=== PATIENT | male | born 1980 | race Caucasian/White ===

== ENCOUNTER 2017-04-14 08:07 | Inpatient (IN) | payer BC, OTHER ==
[2017-04-14 08:32] LABS: BASO # 0.1 10^3/uL (0.0-0.2); BASO % 0.6 % (0.0-1.0); HEMATOCRIT 40.6 % (42.0-52.0); HEMOGLOBIN 12.5 g/dl (14.0-18.0); IMMATURE GRANULOCYTE # 0.4 10^3/uL (0-0); LYMPH # 1.3 10^3/uL (1.5-4.5); LYMPH % 10.2 % (24.0-44.0); MEAN CORPUSCULAR HEMOGLOBIN 28.2 pg (27.0-33.0); MEAN CORPUSCULAR HGB CONC 30.8 g/dl (32.0-36.5); MEAN CORPUSCULAR VOLUME 91.6 fl (80.0-96.0); MONO # 1.1 10^3/uL (0.0-0.8); MONO % 8.5 % (0.0-5.0); NEUTROPHILS # 9.9 10^3/uL (1.8-7.7); NEUTROPHILS % 77.7 % (36.0-66.0); PLATELET COUNT, AUTOMATED 280 10^3/uL (150-450); RED BLOOD COUNT 4.43 10^6/uL (4.30-6.10); RED CELL DISTRIBUTION WIDTH 14.1 % (11.5-14.5); WHITE BLOOD COUNT 12.7 10^3/uL (4.0-10.0)
[2017-04-14 08:43] LABS: INR 1.02; PROTHROMBIN TIME 13.5 SECONDS (12.4-14.5)
[2017-04-14 08:44] LABS: PARTIAL THROMBOPLASTIN TIME 21.4 SECONDS (26.8-37.9)
[2017-04-14 08:57] LABS: ANION GAP 8 MEQ/L (8-16); BLOOD UREA NITROGEN 33 MG/DL (7-18); CALCIUM LEVEL 8.3 MG/DL (8.5-10.1); CARBON DIOXIDE LEVEL 31 MEQ/L (21-32); CHLORIDE LEVEL 100 MEQ/L (98-107); CPK CREATINE PHOSPHOKINASE 107 U/L (39-308); CREATININE FOR GFR 1.54 MG/DL (0.70-1.30); GLOMERULAR FILTRATION RATE 54.1 (>60); MB/CK RELATIVE INDEX 0.93 (< OR =4); SODIUM LEVEL 139 MEQ/L (136-145); TROPONIN I < 0.02 NG/ML (< 0.10)
[2017-04-14] MEDS: NS 1,000 ML IV ×2 (09:08→09:40)
[2017-04-14 09:13] LABS: GLUCOSE, FASTING 1201 MG/DL (70-105); POTASSIUM SERUM 5.2 MEQ/L (3.5-5.1)
[2017-04-14 09:24] LABS: ALBUMIN 3.1 GM/DL (3.2-5.2); ALBUMIN/GLOBULIN RATIO 0.78 (1.00-1.93); ALKALINE PHOSPHATASE 170 U/L (45-117); ALT/SGPT 37 U/L (12-78); AST/SGOT 21 U/L (7-37); BILIRUBIN,DIRECT < 0.1 MG/DL (0.0-0.2); BILIRUBIN,TOTAL 0.4 MG/DL (0.2-1.0); TOTAL PROTEIN 7.1 GM/DL (6.4-8.2)
[2017-04-14] MEDS: HumuLIN R (REGULAR) INSULIN (NovoLIN R) **100U/ML** PER UNIT IV (09:40)
[2017-04-14 09:46] LABS: ACETONE/KETONE 13.93 MG/DL (<2.81)
[2017-04-14 09:52] LABS: LACTIC ACID SEPSIS PROTOCOL 1.1 MMOL/L (0.4-2.0)
[2017-04-14 10:12] LABS: ABG BASE EXCESS -2.7 (-2.0-2.0); ABG HCO3 21.1 MEQ/L (22.0-26.0); ABG O2 SATURATION 97.6 % (95.0-99.0); ABG PARTIAL PRESSURE CO2 33.3 mmHg (35.0-45.0); ABG PARTIAL PRESSURE O2 100.5 mmHg (75.0-100.0); ABG STANDARD HCO3 22.2 MEQ/L (22.0-26.0); ABG TOTAL CO2 22.1 MEQ/L (22.0-29.0)
[2017-04-14] MEDS: SODIUM CHLORIDE 0.9% 1000 ML IV (10:50)
[2017-04-14 11:19] LABS: ANION GAP 8 MEQ/L (8-16); BLOOD UREA NITROGEN 27 MG/DL (7-18); CARBON DIOXIDE LEVEL 28 MEQ/L (21-32); CHLORIDE LEVEL 116 MEQ/L (98-107); CREATININE FOR GFR 1.22 MG/DL (0.70-1.30); GLOMERULAR FILTRATION RATE > 60.0 (>60); POTASSIUM SERUM 4.5 MEQ/L (3.5-5.1); SODIUM LEVEL 152 MEQ/L (136-145)
[2017-04-14 11:20] LABS: GLUCOSE, FASTING 639 MG/DL (70-105)
[2017-04-14] MEDS ORDERED: ONDANSETRON 4MG/2ML VIAL (J2405) IV (11:45)
[2017-04-14] MEDS ORDERED: INSULIN HUMAN REGULAR 100 UNITS in NS 99 ML IV (11:45)
[2017-04-14] MEDS: INSULIN HUMAN REGULAR 100 UNITS in NS 99 ML IV ×2 (12:54→13:00)
[2017-04-14] MEDS: ENOXAPARIN 40 MG/0.4 ML SYRINGE (J1650) SC (12:55)
[2017-04-14] MEDS: PANTOPRAZOLE 40MG INJ (PROTONIX) (C9113) IV (12:55)
[2017-04-14] MEDS: NS 0.45% 1,000 ML IV ×2 (12:55→16:44)
[2017-04-14] MEDS: INSULIN IV RATE CHANGE DOCUMENTATION ML/HR XX ×6 (13:21→23:19)
[2017-04-14 14:29] LABS: ANION GAP 9 MEQ/L (8-16); BLOOD UREA NITROGEN 23 MG/DL (7-18); CALCIUM LEVEL 7.6 MG/DL (8.5-10.1); CARBON DIOXIDE LEVEL 28 MEQ/L (21-32); CHLORIDE LEVEL 117 MEQ/L (98-107); CREATININE FOR GFR 1.02 MG/DL (0.70-1.30); GLOMERULAR FILTRATION RATE > 60.0 (>60); SODIUM LEVEL 154 MEQ/L (136-145)
[2017-04-14 14:40] LABS: GLUCOSE, FASTING 492 MG/DL (70-105)
[2017-04-14 15:51] LABS: BEDSIDE GLUCOSE 487 MG/DL (70-105)
[2017-04-14 15:51] LABS: BEDSIDE GLUCOSE 508 MG/DL (70-105)
[2017-04-14 15:51] LABS: BEDSIDE GLUCOSE 419 MG/DL (70-105)
[2017-04-14 16:10] LABS: BEDSIDE GLUCOSE 360 MG/DL (70-105)
[2017-04-14 17:11] LABS: BEDSIDE GLUCOSE 352 MG/DL (70-105)
[2017-04-14] MEDS: D5W/0.45% SODIUM CHLORIDE 1,000 ML IV (18:05)
[2017-04-14 18:08] LABS: BEDSIDE GLUCOSE 297 MG/DL (70-105)
[2017-04-14 19:07] LABS: BEDSIDE GLUCOSE 307 MG/DL (70-105)
[2017-04-14 19:23] LABS: ANION GAP 5 MEQ/L (8-16); BLOOD UREA NITROGEN 17 MG/DL (7-18); CALCIUM LEVEL 7.2 MG/DL (8.5-10.1); CARBON DIOXIDE LEVEL 30 MEQ/L (21-32); CHLORIDE LEVEL 117 MEQ/L (98-107); CREATININE FOR GFR 0.81 MG/DL (0.70-1.30); GLOMERULAR FILTRATION RATE > 60.0 (>60); GLUCOSE, FASTING 317 MG/DL (70-105); POTASSIUM SERUM 3.6 MEQ/L (3.5-5.1); SODIUM LEVEL 152 MEQ/L (136-145)
[2017-04-14 20:08] LABS: BEDSIDE GLUCOSE 302 MG/DL (70-105)
[2017-04-14 21:10] LABS: BEDSIDE GLUCOSE 305 MG/DL (70-105)
[2017-04-14] MEDS: KCL 40MEQ IN D5/0.45NS 1000ML 1,000 ML IV (22:17)
[2017-04-14 22:26] LABS: BEDSIDE GLUCOSE 289 MG/DL (70-105)
[2017-04-14 23:24] LABS: ANION GAP 5 MEQ/L (8-16); BLOOD UREA NITROGEN 17 MG/DL (7-18); CALCIUM LEVEL 6.8 MG/DL (8.5-10.1); CARBON DIOXIDE LEVEL 29 MEQ/L (21-32); CHLORIDE LEVEL 115 MEQ/L (98-107); GLOMERULAR FILTRATION RATE > 60.0 (>60); GLUCOSE, FASTING 322 MG/DL (70-105); POTASSIUM SERUM 3.3 MEQ/L (3.5-5.1); SODIUM LEVEL 149 MEQ/L (136-145)
[2017-04-14 23:27] LABS: BEDSIDE GLUCOSE 325 MG/DL (70-105)
[2017-04-15] MEDS: INSULIN IV RATE CHANGE DOCUMENTATION ML/HR XX ×12 (00:17→20:03)
[2017-04-15 00:24] LABS: BEDSIDE GLUCOSE 355 MG/DL (70-105)
[2017-04-15 01:24] LABS: BEDSIDE GLUCOSE 317 MG/DL (70-105)
[2017-04-15 02:24] LABS: BEDSIDE GLUCOSE 295 MG/DL (70-105)
[2017-04-15 03:19] LABS: ANION GAP 7 MEQ/L (8-16); BLOOD UREA NITROGEN 16 MG/DL (7-18); CALCIUM LEVEL 7.2 MG/DL (8.5-10.1); CARBON DIOXIDE LEVEL 28 MEQ/L (21-32); CHLORIDE LEVEL 113 MEQ/L (98-107); CREATININE FOR GFR 0.76 MG/DL (0.70-1.30); GLOMERULAR FILTRATION RATE > 60.0 (>60); GLUCOSE, FASTING 316 MG/DL (70-105); POTASSIUM SERUM 3.6 MEQ/L (3.5-5.1); SODIUM LEVEL 148 MEQ/L (136-145)
[2017-04-15 03:19] LABS: BEDSIDE GLUCOSE 291 MG/DL (70-105)
[2017-04-15 04:26] LABS: BEDSIDE GLUCOSE 320 MG/DL (70-105)
[2017-04-15] MEDS: KCL 40MEQ IN D5/0.45NS 1000ML 1,000 ML IV ×2 (05:00→11:31)
[2017-04-15 05:16] LABS: BEDSIDE GLUCOSE 330 MG/DL (70-105)
[2017-04-15 06:11] LABS: BEDSIDE GLUCOSE 292 MG/DL (70-105)
[2017-04-15 07:05] LABS: BEDSIDE GLUCOSE 345 MG/DL (70-105)
[2017-04-15 07:25] LABS: BASO % 0.2 % (0.0-1.0); EOS # 0.2 10^3/uL (0.0-0.50); EOS % 1.4 % (0.0-3.0); HEMATOCRIT 27.7 % (42.0-52.0); IMMATURE GRANULOCYTE # 0.1 10^3/uL (0-0); IMMATURE GRANULOCYTE % 1.4 % (0-0); LYMPH # 2.8 10^3/uL (1.5-4.5); LYMPH % 26.5 % (24.0-44.0); MEAN CORPUSCULAR HEMOGLOBIN 28.6 pg (27.0-33.0); MEAN CORPUSCULAR HGB CONC 32.5 g/dl (32.0-36.5); MEAN CORPUSCULAR VOLUME 87.9 fl (80.0-96.0); MONO # 0.6 10^3/uL (0.0-0.8); NEUTROPHILS # 6.7 10^3/uL (1.8-7.7); NEUTROPHILS % 64.5 % (36.0-66.0); RED BLOOD COUNT 3.15 10^6/uL (4.30-6.10); RED CELL DISTRIBUTION WIDTH 13.8 % (11.5-14.5); WHITE BLOOD COUNT 10.4 10^3/uL (4.0-10.0)
[2017-04-15 07:37] LABS: PLATELET COUNT, AUTOMATED 175 10^3/uL (150-450)
[2017-04-15 08:11] LABS: BEDSIDE GLUCOSE 305 MG/DL (70-105)
[2017-04-15] MEDS: ENOXAPARIN 40 MG/0.4 ML SYRINGE (J1650) SC (08:23)
[2017-04-15] MEDS: PANTOPRAZOLE 40MG INJ (PROTONIX) (C9113) IV (08:23)
[2017-04-15 09:14] LABS: BEDSIDE GLUCOSE 321 MG/DL (70-105)
[2017-04-15 09:28] LABS: CHOLESTEROL LEVEL 245 MG/DL (<200); CHOLESTEROL RISK RATIO 10.208 (<5); HDL CHOLESTEROL 24 MG/DL (>40); NON-HDL-C 221 MG/DL; TRIGLYCERIDES LEVEL 945 MG/DL (<150)
[2017-04-15 10:12] LABS: BEDSIDE GLUCOSE 292 MG/DL (70-105)
[2017-04-15 11:09] LABS: BEDSIDE GLUCOSE 288 MG/DL (70-105)
[2017-04-15 12:20] LABS: BEDSIDE GLUCOSE 295 MG/DL (70-105)
[2017-04-15 12:30] LABS: ANION GAP 5 MEQ/L (8-16); BLOOD UREA NITROGEN 14 MG/DL (7-18); CARBON DIOXIDE LEVEL 29 MEQ/L (21-32); CHLORIDE LEVEL 109 MEQ/L (98-107); CREATININE FOR GFR 0.69 MG/DL (0.70-1.30); GLOMERULAR FILTRATION RATE > 60.0 (>60); GLUCOSE, FASTING 314 MG/DL (70-100); POTASSIUM SERUM 3.9 MEQ/L (3.5-5.1); SODIUM LEVEL 143 MEQ/L (136-145)
[2017-04-15 13:19] LABS: BEDSIDE GLUCOSE 297 MG/DL (70-105)
[2017-04-15] MEDS: KCL 40MEQ IN D5/NS 1000ML 1,000 ML IV ×2 (14:06→20:01)
[2017-04-15 14:14] LABS: BEDSIDE GLUCOSE 317 MG/DL (70-105)
[2017-04-15 15:17] LABS: BEDSIDE GLUCOSE 287 MG/DL (70-105)
[2017-04-15 16:10] LABS: BEDSIDE GLUCOSE 305 MG/DL (70-105)
[2017-04-15 17:40] LABS: BEDSIDE GLUCOSE 261 MG/DL (70-105)
[2017-04-15 18:28] LABS: BEDSIDE GLUCOSE 271 MG/DL (70-105)
[2017-04-15 19:02] LABS: BEDSIDE GLUCOSE 285 MG/DL (70-105)
[2017-04-15 20:02] LABS: ANION GAP 7 MEQ/L (8-16); BLOOD UREA NITROGEN 10 MG/DL (7-18); CALCIUM LEVEL 7.2 MG/DL (8.5-10.1); CARBON DIOXIDE LEVEL 26 MEQ/L (21-32); CHLORIDE LEVEL 108 MEQ/L (98-107); CREATININE FOR GFR 0.62 MG/DL (0.70-1.30); GLOMERULAR FILTRATION RATE > 60.0 (>60); GLUCOSE, FASTING 281 MG/DL (70-100); POTASSIUM SERUM 3.9 MEQ/L (3.5-5.1); SODIUM LEVEL 141 MEQ/L (136-145)
[2017-04-15] MEDS: INSULIN HUMAN REGULAR 100 UNITS in NS 99 ML IV (20:02)
[2017-04-15 20:03] LABS: BEDSIDE GLUCOSE 296 MG/DL (70-105)
[2017-04-15 21:10] LABS: BEDSIDE GLUCOSE 285 MG/DL (70-105)
[2017-04-15 22:10] LABS: BEDSIDE GLUCOSE 278 MG/DL (70-105)
[2017-04-15 23:03] LABS: BEDSIDE GLUCOSE 270 MG/DL (70-105)
[2017-04-15] MEDS: LEVEMIR (INSULIN DETEMIR) 1 UNITS/0.01ML SC (23:14)
[2017-04-16 00:17] LABS: BEDSIDE GLUCOSE 271 MG/DL (70-105)
[2017-04-16 00:45] LABS: ANION GAP 5 MEQ/L (8-16); BLOOD UREA NITROGEN 9 MG/DL (7-18); CARBON DIOXIDE LEVEL 27 MEQ/L (21-32); CHLORIDE LEVEL 110 MEQ/L (98-107); CREATININE FOR GFR 0.57 MG/DL (0.70-1.30); GLOMERULAR FILTRATION RATE > 60.0 (>60); GLUCOSE, FASTING 276 MG/DL (70-100); POTASSIUM SERUM 3.7 MEQ/L (3.5-5.1); SODIUM LEVEL 142 MEQ/L (136-145)
[2017-04-16] MEDS ORDERED: GLUCAGON FOR INJ 1 MG VIAL (J1610) SC (01:00)
[2017-04-16] MEDS ORDERED: GLUCOSE 4 GM CHEW TABLET PO (01:00)
[2017-04-16] MEDS ORDERED: DEXTROSE 50% 50 ML SYRINGE IV (01:00)
[2017-04-16 03:43] LABS: ANION GAP 8 MEQ/L (8-16); BLOOD UREA NITROGEN 9 MG/DL (7-18); CARBON DIOXIDE LEVEL 25 MEQ/L (21-32); CHLORIDE LEVEL 110 MEQ/L (98-107); CREATININE FOR GFR 0.57 MG/DL (0.70-1.30); GLOMERULAR FILTRATION RATE > 60.0 (>60); GLUCOSE, FASTING 315 MG/DL (70-100); POTASSIUM SERUM 3.9 MEQ/L (3.5-5.1); SODIUM LEVEL 143 MEQ/L (136-145)
[2017-04-16 04:14] LABS: BASO % 0.1 % (0.0-1.0); EOS # 0.2 10^3/uL (0.0-0.50); EOS % 1.8 % (0.0-3.0); HEMOGLOBIN 8.8 g/dl (14.0-18.0); IMMATURE GRANULOCYTE # 0.1 10^3/uL (0-0); IMMATURE GRANULOCYTE % 0.8 % (0-0); LYMPH # 2.4 10^3/uL (1.5-4.5); LYMPH % 28.2 % (24.0-44.0); MEAN CORPUSCULAR HEMOGLOBIN 28.4 pg (27.0-33.0); MEAN CORPUSCULAR HGB CONC 32.6 g/dl (32.0-36.5); MEAN CORPUSCULAR VOLUME 87.1 fl (80.0-96.0); MONO # 0.5 10^3/uL (0.0-0.8); NEUTROPHILS # 5.5 10^3/uL (1.8-7.7); NEUTROPHILS % 63.1 % (36.0-66.0); PLATELET COUNT, AUTOMATED 170 10^3/uL (150-450); RED CELL DISTRIBUTION WIDTH 13.6 % (11.5-14.5); WHITE BLOOD COUNT 8.7 10^3/uL (4.0-10.0)
[2017-04-16 06:11] LABS: ANION GAP 7 MEQ/L (8-16); BLOOD UREA NITROGEN 9 MG/DL (7-18); CARBON DIOXIDE LEVEL 26 MEQ/L (21-32); CHLORIDE LEVEL 109 MEQ/L (98-107); CREATININE FOR GFR 0.58 MG/DL (0.70-1.30); GLOMERULAR FILTRATION RATE > 60.0 (>60); GLUCOSE, FASTING 318 MG/DL (70-100); SODIUM LEVEL 142 MEQ/L (136-145)
[2017-04-16] MEDS: PANTOPRAZOLE 40MG INJ (PROTONIX) (C9113) IV (08:22)
[2017-04-16] MEDS: ATORVASTATIN 20 MG TAB PO (08:22)
[2017-04-16] MEDS: OMEGA-3 1050MG CAPSULE PO (08:22)
[2017-04-16] MEDS: HumaLOG INSULIN (NovoLOG) PER UNIT SC ×4 (08:23→20:49)
[2017-04-16] MEDS: ENOXAPARIN 40 MG/0.4 ML SYRINGE (J1650) SC (08:23)
[2017-04-16 08:27] LABS: RETIC HEMOGLOBIN EQUIVALENT 35.2 pg (24-36); RETICULOCYTE # 66.6 10^9/L (17-77); RETICULOCYTE % 2.1 % (0.5-1.5)
[2017-04-16 08:52] LABS: FERRITIN 1769 NG/ML (26-388); IRON (FE) 17 UG/DL (65-175); PERCENT SATURATION 13.2 % (19.7-50.0); TOTAL IRON BINDING CAPACITY 129 UG/DL (250-450)
[2017-04-16 13:23] LABS: BEDSIDE GLUCOSE 404 MG/DL (70-105)
[2017-04-16 13:23] LABS: BEDSIDE GLUCOSE > 600 MG/DL (70-105)
[2017-04-16 13:23] LABS: BEDSIDE GLUCOSE > 600 MG/DL (70-105)
[2017-04-16] MEDS: LEVEMIR (INSULIN DETEMIR) 1 UNITS/0.01ML SC ×2 (15:54→20:49)
[2017-04-16 16:58] LABS: BEDSIDE GLUCOSE 245 MG/DL (70-105)
[2017-04-16 20:42] LABS: BEDSIDE GLUCOSE 277 MG/DL (70-105)
[2017-04-16] MEDS ORDERED: LEVEMIR (INSULIN DETEMIR) 1 UNITS/0.01ML SC (21:00)
[2017-04-17 06:31] LABS: BASO % 0.1 % (0.0-1.0); EOS # 0.1 10^3/uL (0.0-0.50); EOS % 1.9 % (0.0-3.0); HEMATOCRIT 28.7 % (42.0-52.0); HEMOGLOBIN 9.3 g/dl (14.0-18.0); IMMATURE GRANULOCYTE # 0.1 10^3/uL (0-0); IMMATURE GRANULOCYTE % 1.1 % (0-0); LYMPH # 1.8 10^3/uL (1.5-4.5); LYMPH % 25.2 % (24.0-44.0); MEAN CORPUSCULAR HEMOGLOBIN 27.8 pg (27.0-33.0); MEAN CORPUSCULAR HGB CONC 32.4 g/dl (32.0-36.5); MEAN CORPUSCULAR VOLUME 85.9 fl (80.0-96.0); MONO # 0.5 10^3/uL (0.0-0.8); MONO % 6.2 % (0.0-5.0); NEUTROPHILS # 4.8 10^3/uL (1.8-7.7); NEUTROPHILS % 65.5 % (36.0-66.0); PLATELET COUNT, AUTOMATED 170 10^3/uL (150-450); RED BLOOD COUNT 3.34 10^6/uL (4.30-6.10); RED CELL DISTRIBUTION WIDTH 13.4 % (11.5-14.5); WHITE BLOOD COUNT 7.3 10^3/uL (4.0-10.0)
[2017-04-17 06:52] LABS: ANION GAP 7 MEQ/L (8-16); BLOOD UREA NITROGEN 11 MG/DL (7-18); CALCIUM LEVEL 7.5 MG/DL (8.5-10.1); CARBON DIOXIDE LEVEL 26 MEQ/L (21-32); CHLORIDE LEVEL 109 MEQ/L (98-107); CREATININE FOR GFR 0.63 MG/DL (0.70-1.30); GLOMERULAR FILTRATION RATE > 60.0 (>60); GLUCOSE, FASTING 284 MG/DL (70-100); POTASSIUM SERUM 3.7 MEQ/L (3.5-5.1); SODIUM LEVEL 142 MEQ/L (136-145)
[2017-04-17 08:09] LABS: HAPTOGLOBIN 202 mg/dL (34-200)
[2017-04-17] MEDS: FERROUS SULFATE 325MG TAB PO ×3 (08:31→20:24)
[2017-04-17] MEDS: DOCUSATE SODIUM 100 MG CAP PO ×2 (08:31→20:24)
[2017-04-17] MEDS: ATORVASTATIN 20 MG TAB PO (08:31)
[2017-04-17] MEDS: OMEGA-3 1050MG CAPSULE PO (08:31)
[2017-04-17] MEDS: CALCIUM GLUCONATE 1,000 MG in D5W MINI-BAG PLUS 100 ML IV (08:32)
[2017-04-17] MEDS: PANTOPRAZOLE 40MG INJ (PROTONIX) (C9113) IV (08:32)
[2017-04-17] MEDS: ENOXAPARIN 40 MG/0.4 ML SYRINGE (J1650) SC (08:32)
[2017-04-17] MEDS: LEVEMIR (INSULIN DETEMIR) 1 UNITS/0.01ML SC (08:33)
[2017-04-17] MEDS: HumaLOG INSULIN (NovoLOG) PER UNIT SC ×4 (08:33→20:24)
[2017-04-17] MEDS: MIRALAX *UNIT DOSE* 17GM PACKET PO (08:33)
[2017-04-17] MEDS ORDERED: LEVEMIR (INSULIN DETEMIR) 1 UNITS/0.01ML SC (09:00)
[2017-04-17 11:46] LABS: BEDSIDE GLUCOSE 281 MG/DL (70-105)
[2017-04-17 16:54] LABS: BEDSIDE GLUCOSE 232 MG/DL (70-105)
[2017-04-17 20:41] LABS: BEDSIDE GLUCOSE 266 MG/DL (70-105)
[2017-04-18 06:37] LABS: BASO % 0.3 % (0.0-1.0); EOS # 0.2 10^3/uL (0.0-0.50); EOS % 2.5 % (0.0-3.0); HEMATOCRIT 27.4 % (42.0-52.0); HEMOGLOBIN 8.8 g/dl (14.0-18.0); IMMATURE GRANULOCYTE # 0.1 10^3/uL (0-0); IMMATURE GRANULOCYTE % 1.5 % (0-0); LYMPH % 29.1 % (24.0-44.0); MEAN CORPUSCULAR HEMOGLOBIN 27.8 pg (27.0-33.0); MEAN CORPUSCULAR HGB CONC 32.1 g/dl (32.0-36.5); MEAN CORPUSCULAR VOLUME 86.4 fl (80.0-96.0); MONO # 0.5 10^3/uL (0.0-0.8); NEUTROPHILS % 58.6 % (36.0-66.0); PLATELET COUNT, AUTOMATED 144 10^3/uL (150-450); RED BLOOD COUNT 3.17 10^6/uL (4.30-6.10); RED CELL DISTRIBUTION WIDTH 13.3 % (11.5-14.5); WHITE BLOOD COUNT 6.8 10^3/uL (4.0-10.0)
[2017-04-18 06:57] LABS: ANION GAP 6 MEQ/L (8-16); BLOOD UREA NITROGEN 8 MG/DL (7-18); CALCIUM LEVEL 7.4 MG/DL (8.5-10.1); CARBON DIOXIDE LEVEL 29 MEQ/L (21-32); CHLORIDE LEVEL 106 MEQ/L (98-107); CREATININE FOR GFR 0.53 MG/DL (0.70-1.30); GLOMERULAR FILTRATION RATE > 60.0 (>60); GLUCOSE, FASTING 264 MG/DL (70-100); POTASSIUM SERUM 3.8 MEQ/L (3.5-5.1); SODIUM LEVEL 141 MEQ/L (136-145)
[2017-04-18] MEDS: ENOXAPARIN 40 MG/0.4 ML SYRINGE (J1650) SC (08:24)
[2017-04-18] MEDS: HumaLOG INSULIN (NovoLOG) PER UNIT SC ×2 (08:25→13:30)
[2017-04-18] MEDS: OMEGA-3 1050MG CAPSULE PO (08:25)
[2017-04-18] MEDS: DOCUSATE SODIUM 100 MG CAP PO (08:25)
[2017-04-18] MEDS: ATORVASTATIN 20 MG TAB PO (08:25)
[2017-04-18] MEDS: LEVEMIR (INSULIN DETEMIR) 1 UNITS/0.01ML SC (08:26)
[2017-04-18] MEDS: FERROUS SULFATE 325MG TAB PO (08:26)
[2017-04-18] MEDS: MIRALAX *UNIT DOSE* 17GM PACKET PO (09:00)
[2017-04-18] MEDS: PANTOPRAZOLE 40MG INJ (PROTONIX) (C9113) IV (09:00)
[2017-04-18 15:56] LABS: BEDSIDE GLUCOSE 348 MG/DL (70-105)
== END 2017-04-18 14:25 | disposition home or self-care (01) | DRG 420 ==
LOC: M MSPAV 04-16 17:30 → M ED 08:07 → M ED INP 10:52 → M ICU 12:20
PROVIDERS: Internal Medicine Nephrology
DX: E11.00 Type 2 diabetes mellitus with hyperosmolarity without nonketotic hyperglycemic-hyperosmolar coma (NKHHC) (principal); G93.41 Metabolic encephalopathy; N17.9 Acute kidney failure, unspecified; E83.51 Hypocalcemia; E78.5 Hyperlipidemia, unspecified; J45.909 Unspecified asthma, uncomplicated; F41.9 Anxiety disorder, unspecified; D64.9 Anemia, unspecified; G47.33 Obstructive sleep apnea (adult) (pediatric); F17.210 Nicotine dependence, cigarettes, uncomplicated; E86.0 Dehydration; Z91.14 Patient's other noncompliance with medication regimen

== ENCOUNTER → 2019-02-13 | Outpatient (REF) | payer OTHER, MEDICAID ==
[~2019-02-13] MED LIST: ATOR1TAB21 PO; COLA100C5 PO; D-CA1KIT XX; FERR1TAB8 PO; INSUDET SC; LEVE1INJ5 SC; METF500T13 PO; OMAC1CA PO
[2019-02-13 12:43] LABS: BASO % 0.5 % (0.0-1.0); EOS # 0.2 10^3/uL (0.0-0.5); HEMATOCRIT 40.9 % (42.0-52.0); HEMOGLOBIN 13.4 g/dl (13.5-17.5); LYMPH # 1.7 10^3/uL (1.5-5.0); LYMPH % 25.7 % (24.0-44.0); MEAN CORPUSCULAR HEMOGLOBIN 28.8 pg (27.0-33.0); MEAN CORPUSCULAR HGB CONC 32.8 g/dl (32.0-36.5); MEAN CORPUSCULAR VOLUME 87.8 fl (80.0-96.0); MONO # 0.6 10^3/uL (0.0-0.8); MONO % 8.4 % (0.0-5.0); NEUTROPHILS # 4.1 10^3/uL (1.5-8.5); NEUTROPHILS % 61.8 % (36.0-66.0); PLATELET COUNT, AUTOMATED 182 10^3/uL (150-450); RED BLOOD COUNT 4.66 10^6/uL (4.30-6.10); WHITE BLOOD COUNT 6.7 10^3/uL (4.0-10.0)
[2019-02-13 13:00] LABS: TOTAL 25(OH) VITAMIN D 13.7 NG/ML (30.0-100.0)
[2019-02-13 13:03] LABS: HEMOGLOBIN A1c 7.6 %
[2019-02-13 13:06] LABS: ALBUMIN 3.9 GM/DL (3.2-5.2); ALT/SGPT 48 U/L (12-78); BILIRUBIN,TOTAL 0.6 MG/DL (0.2-1.0); BLOOD UREA NITROGEN 14 MG/DL (7-18); CALCIUM LEVEL 7.9 MG/DL (8.5-10.1); CARBON DIOXIDE LEVEL 27 MEQ/L (21-32); CHLORIDE LEVEL 106 MEQ/L (98-107); CHOLESTEROL LEVEL 188 MG/DL (<200); CHOLESTEROL RISK RATIO 4.177 (<5); CREATININE FOR GFR 0.86 MG/DL (0.70-1.30); FERRITIN 66 NG/ML (26-388); GLOMERULAR FILTRATION RATE > 60.0 (>60); GLUCOSE, FASTING 159 MG/DL (70-100); HDL CHOLESTEROL 45 MG/DL (>40); IRON (FE) 74 UG/DL (65-175); LDL CHOLESTEROL 95 MG/DL (<100); NON-HDL-C 143 MG/DL; PERCENT SATURATION 22.8 % (19.7-50.0); POTASSIUM SERUM 4.2 MEQ/L (3.5-5.1); SODIUM LEVEL 139 MEQ/L (136-145); TOTAL IRON BINDING CAPACITY 324 UG/DL (250-450); TOTAL PROTEIN 7.1 GM/DL (6.4-8.2); TRIGLYCERIDES LEVEL 241 MG/DL (<150)
== END ==
LOC: M LAB REF 12:23
PROVIDERS: ATTEND Nurse Practitioner Family
DX: D64.9 Anemia, unspecified (principal)

== ENCOUNTER → 2019-08-13 | Outpatient (REF) | payer OTHER, MEDICAID ==
[2019-08-13 13:27] LABS: ALBUMIN 4.4 GM/DL (3.2-5.2); ALT/SGPT 58 U/L (12-78); BILIRUBIN,TOTAL 0.5 MG/DL (0.2-1.0); BLOOD UREA NITROGEN 16 MG/DL (7-18); CALCIUM LEVEL 8.5 MG/DL (8.5-10.1); CARBON DIOXIDE LEVEL 27 MEQ/L (21-32); CHLORIDE LEVEL 104 MEQ/L (98-107); CHOLESTEROL LEVEL 126 MG/DL (<200); CHOLESTEROL RISK RATIO 2.625 (<5); CREATININE FOR GFR 0.81 MG/DL (0.70-1.30); GLOMERULAR FILTRATION RATE > 60.0 (>60); GLUCOSE, FASTING 249 MG/DL (70-100); HDL CHOLESTEROL 48 MG/DL (>40); LDL CHOLESTEROL 59 MG/DL (<100); NON-HDL-C 78 MG/DL; POTASSIUM SERUM 4.4 MEQ/L (3.5-5.1); SODIUM LEVEL 138 MEQ/L (136-145); THYROID STIMULATING HORMONE 0.808 uIU/ML (0.358-3.740); TOTAL PROTEIN 7.4 GM/DL (6.4-8.2); TRIGLYCERIDES LEVEL 95 MG/DL (<150)
[2019-08-13 13:52] LABS: HEMOGLOBIN A1c 11.1 %
== END ==
LOC: M LAB REF 12:06
PROVIDERS: ATTEND Family Medicine Addiction Medicine
DX: E11.00 Type 2 diabetes mellitus with hyperosmolarity without nonketotic hyperglycemic-hyperosmolar coma (NKHHC) (principal)

== ENCOUNTER → 2019-11-09 | Outpatient (REF) | payer OTHER, MEDICAID ==
[2019-12-25 14:40] LABS: BASO % 0.6 % (0.0-1.0); EOS # 0.2 10^3/uL (0.0-0.5); EOS % 3.4 % (0.0-3.0); HEMATOCRIT 41.6 % (42.0-52.0); HEMOGLOBIN 13.7 g/dl (13.5-17.5); LYMPH # 1.6 10^3/uL (1.5-5.0); LYMPH % 23.9 % (24.0-44.0); MEAN CORPUSCULAR HEMOGLOBIN 28.6 pg (27.0-33.0); MEAN CORPUSCULAR HGB CONC 32.9 g/dl (32.0-36.5); MEAN CORPUSCULAR VOLUME 86.8 fl (80.0-96.0); MONO # 0.4 10^3/uL (0.0-0.8); MONO % 6.4 % (0.0-5.0); NEUTROPHILS # 4.3 10^3/uL (1.5-8.5); NEUTROPHILS % 65.1 % (36.0-66.0); PLATELET COUNT, AUTOMATED 180 10^3/uL (150-450); RED BLOOD COUNT 4.79 10^6/uL (4.30-6.10); WHITE BLOOD COUNT 6.5 10^3/uL (4.0-10.0)
[2020-01-04 22:07] LABS: HEMOGLOBIN A1c 7.2 %
[2020-01-04 23:32] LABS: ALBUMIN 4.1 GM/DL (3.2-5.2); ALT/SGPT 45 U/L (12-78); BILIRUBIN,TOTAL 0.5 MG/DL (0.2-1.0); BLOOD UREA NITROGEN 17 MG/DL (7-18); CALCIUM LEVEL 8.3 MG/DL (8.5-10.1); CARBON DIOXIDE LEVEL 27 MEQ/L (21-32); CHLORIDE LEVEL 109 MEQ/L (98-107); CHOLESTEROL LEVEL 145 MG/DL (<200); CHOLESTEROL RISK RATIO 3.625 (<5); CREATININE FOR GFR 0.76 MG/DL (0.70-1.30); GLOMERULAR FILTRATION RATE > 60.0 (>60); GLUCOSE, FASTING 116 MG/DL (70-100); HDL CHOLESTEROL 40 MG/DL (>40); LDL CHOLESTEROL 56 MG/DL (<100); NON-HDL-C 105 MG/DL; POTASSIUM SERUM 4.5 MEQ/L (3.5-5.1); SODIUM LEVEL 141 MEQ/L (136-145); THYROID STIMULATING HORMONE 0.909 uIU/ML (0.358-3.740); TOTAL PROTEIN 7.4 GM/DL (6.4-8.2); TRIGLYCERIDES LEVEL 245 MG/DL (<150)
== END ==
LOC: M LAB REF 09:51
PROVIDERS: ATTEND Family Medicine Addiction Medicine
DX: E78.5 Hyperlipidemia, unspecified (principal); R03.0 Elevated blood-pressure reading, without diagnosis of hypertension; E11.00 Type 2 diabetes mellitus with hyperosmolarity without nonketotic hyperglycemic-hyperosmolar coma (NKHHC)

== ENCOUNTER → 2020-02-25 | Outpatient (REF) | payer OTHER, MEDICAID ==
[2020-02-25 14:01] LABS: HEMOGLOBIN A1c 6.9 %
[2020-02-25 14:04] LABS: BLOOD UREA NITROGEN 21 MG/DL (7-18); CARBON DIOXIDE LEVEL 26 MEQ/L (21-32); CHLORIDE LEVEL 105 MEQ/L (98-107); CREATININE FOR GFR 0.81 MG/DL (0.70-1.30); GLOMERULAR FILTRATION RATE > 60.0 (>60); GLUCOSE, FASTING 172 MG/DL (70-100); POTASSIUM SERUM 4.6 MEQ/L (3.5-5.1); SODIUM LEVEL 139 MEQ/L (136-145)
[2020-02-25 14:05] LABS: ALBUMIN 4.2 GM/DL (3.2-5.2); ALT/SGPT 44 U/L (12-78); BILIRUBIN,TOTAL 0.3 MG/DL (0.2-1.0); CALCIUM LEVEL 8.7 MG/DL (8.5-10.1); CHOLESTEROL LEVEL 205 MG/DL (<200); CHOLESTEROL RISK RATIO 5.394 (<5); HDL CHOLESTEROL 38 MG/DL (>40); NON-HDL-C 167 MG/DL; THYROID STIMULATING HORMONE 0.953 uIU/ML (0.358-3.740); TOTAL PROTEIN 7.5 GM/DL (6.4-8.2); TRIGLYCERIDES LEVEL 909 MG/DL (<150)
== END ==
LOC: M LAB REF 12:19
PROVIDERS: ATTEND Family Medicine Addiction Medicine
DX: E11.00 Type 2 diabetes mellitus with hyperosmolarity without nonketotic hyperglycemic-hyperosmolar coma (NKHHC) (principal)

== ENCOUNTER → 2020-05-30 | Outpatient (REF) | payer OTHER, MEDICAID ==
[2020-05-30 13:16] LABS: ALBUMIN 4.4 GM/DL (3.2-5.2); ALT/SGPT 68 U/L (12-78); BILIRUBIN,TOTAL 0.4 MG/DL (0.2-1.0); BLOOD UREA NITROGEN 17 MG/DL (7-18); CALCIUM LEVEL 8.9 MG/DL (8.5-10.1); CARBON DIOXIDE LEVEL 26 MEQ/L (21-32); CHLORIDE LEVEL 102 MEQ/L (98-107); CHOLESTEROL LEVEL 220 MG/DL (<200); CREATININE FOR GFR 0.94 MG/DL (0.70-1.30); GLOMERULAR FILTRATION RATE > 60.0 (>60); GLUCOSE, FASTING 213 MG/DL (70-100); HDL CHOLESTEROL 34 MG/DL (>40); NON-HDL-C 186 MG/DL; POTASSIUM SERUM 4.6 MEQ/L (3.5-5.1); SODIUM LEVEL 137 MEQ/L (136-145); THYROID STIMULATING HORMONE 0.911 uIU/ML (0.358-3.740); TOTAL PROTEIN 7.4 GM/DL (6.4-8.2); TRIGLYCERIDES LEVEL 926 MG/DL (<150)
[2020-05-30 13:32] LABS: HEMOGLOBIN A1c 7.5 %
== END ==
LOC: M LAB REF 12:10
PROVIDERS: ATTEND Family Medicine Addiction Medicine
DX: M25.50 Pain in unspecified joint (principal); E11.69 Type 2 diabetes mellitus with other specified complication

== ENCOUNTER 2020-11-22 23:01 | Day surgery (SDC) | payer MEDICAID, OTHER ==
[~2020-11-22] VITALS: Ht 165.1 cm; Wt 102.5 kg
[2020-11-22] MEDS ORDERED: METF10004 PO (23:41)
[2020-11-22] MEDS ORDERED: FENO145T7 PO (23:41)
[2020-11-22] MEDS ORDERED: VITA1CAP25 PO (23:41)
[2020-11-22] MEDS ORDERED: NAPR220C14 PO (23:41)
[2020-11-22] MEDS ORDERED: STEG15TA PO (23:41)
[2020-11-22] MEDS ORDERED: EZET10TA21 PO (23:41)
[2020-11-23] VITALS (8 sets, daily range): BP systolic 118–140; BP diastolic 63–82
[2020-11-23] MEDS ORDERED: ONDANSETRON 4MG/2ML VIAL IV ONE (00:20)
[2020-11-23] MEDS ORDERED: NS 1,000 ML IV ONE (00:20)
[2020-11-23 00:54] LABS: BASO % 0.2 % (0.0-1.0); EOS # 0.1 10^3/uL (0.0-0.5); EOS % 0.5 % (0.0-3.0); HEMATOCRIT 47.5 % (42.0-52.0); HEMOGLOBIN 16.2 g/dl (13.5-17.5); LYMPH # 1.8 10^3/uL (1.5-5.0); LYMPH % 10.7 % (24.0-44.0); MEAN CORPUSCULAR HEMOGLOBIN 28.4 pg (27.0-33.0); MEAN CORPUSCULAR HGB CONC 34.1 g/dl (32.0-36.5); MEAN CORPUSCULAR VOLUME 83.3 fl (80.0-96.0); MONO # 1.7 10^3/uL (0.0-0.8); MONO % 9.8 % (2.0-8.0); NEUTROPHILS # 13.2 10^3/uL (1.5-8.5); NEUTROPHILS % 78.4 % (36.0-66.0); PLATELET COUNT, AUTOMATED 228 10^3/uL (150-450)
[2020-11-23 01:16] LABS: WHITE BLOOD COUNT 16.9 10^3/uL (4.0-10.0)
[2020-11-23 01:26] LABS: ALBUMIN 4.2 GM/DL (3.2-5.2); BILIRUBIN,DIRECT 0.1 MG/DL (0.0-0.2); BILIRUBIN,TOTAL 0.7 MG/DL (0.2-1.0); TOTAL PROTEIN 8.1 GM/DL (6.4-8.2)
--- NOTE | 2020-11-23 01:59 | REPVR ---
PROCEDURE INFORMATION: Exam: CT Abdomen and Pelvis with Contrast Exam date and time: 11/23/20 (1:01am) Age: 39 years old Clinical indication: Generalized abdominal pain. RLQ pain. TECHNIQUE: Imaging protocol: Computed tomography of the abdomen and pelvis with contrast. Radiation optimization: All CT scans at this facility use at least one of these dose optimization techniques: automated exposure control; mA and/or kV adjustment per patient size (includes targeted exams where dose is matched to clinical indication); or iterative reconstruction. Contrast material: Iso Contrast volume: 100 ml Contrast route: IV COMPARISON: No relevant prior studies available FINDINGS: Liver: No solid mass. Diffuse fatty infiltration. Gallbladder and bile ducts: Normal. No calcified stones. No ductal dilatation. Pancreas: Normal. No ductal dilatation. Spleen: Mildly prominent spleen. Adrenal glands: Normal. No mass. Kidneys and ureters: Normal. No hydronephrosis. Stomach and bowel: No bowel obstruction. No mucosal thickening. Appendix: Long, dilated, inflamed appendix, containing at least 2 appendicooliths (4 mm and 2 mm size) (coronal images #36 - #40) (axial images #130 - #138). Mild adjacent inflammation. No abscess. No bowel obstruction. Intraperitoneal space: Unremarkable. No free air. No significant fluid collection. Vasculature: Unremarkable. No abdominal aortic aneurysm. Lymph nodes: Unremarkable. No enlarged lymph nodes. Urinary bladder: Unremarkable as visualized. Reproductive: Unremarkable as visualized. Bones/joints: Unremarkable. No acute fracture. Soft tissues: Unremarkable. IMPRESSION: Findings compatible with acute non-perforated appendicitis. A dilated, inflamed appendix is seen, containing at least 2 appendicoliths. No abscess. No bowel obstruction. No free air. Diffuse fatty liver infiltration. Electronically signed by: Lauren Khalil On 11/23/2020 01:59:12 AM
[2020-11-23] MEDS ORDERED: AMPICILLIN SOD/SULBACTAM SOD 3 GM in D5W MINI-BAG PLUS 100 ML IV ONE (02:10)
[2020-11-23] MEDS ORDERED: FISH1000 PO (02:54)
[2020-11-23] MEDS ORDERED: BAYE500T2 PO (02:54)
[2020-11-23] MEDS ORDERED: ALEV220T22 PO (02:54)
[2020-11-23] MEDS ORDERED: HOME MED LIST COMPLETE! XX SCH (02:55)
[2020-11-23 03:19] LABS: RSV AMPLIFICATION NEGATIVE (NEGATIVE)
[2020-11-23] MEDS ORDERED: ONDANSETRON 4MG/2ML VIAL IV PRN ×2 (03:20→16:30)
[2020-11-23] MEDS ORDERED: ACETAMINOPHEN TAB 650MG DOSE (2X325MG) PO PRN (03:20)
[2020-11-23] MEDS: LR 1,000 ML IV SCH ×2 (03:46→11:20)
[2020-11-23] MEDS: KETOROLAC 30 MG/ML 1ML VIAL IV PRN (05:32)
--- NOTE | 2020-11-23 08:23 | HPEPDOC ---
General Surgery H&P Date of Admission Nov 23, 2020 Attending Physician: THADDEUS HORTA MD History and Physical General surgery. Dr. Horta HISTORY OF PRESENT ILLNESS: The patient is a 39-year-old male who reports onset of nausea and vomiting yesterday morning. He noted some back pain but later about 5:00 he started noticing right lower quadrant pain. The pain was a dull constant pain. Worse with movement or with touching the area. It continually worsened therefore he reported to the emergency department. He denies any fevers or chills. Denies any diarrhea or constipation. Imaging in the emergency department indicated acute appendicitis, admission was arranged. ALLERGIES: Please see below. HOME MEDICATIONS: Please see below. PAST MEDICAL HISTORY: Asthma POORNIMA, CPAP Chronic back pain History of [place] Hypertension Hyperlipidemia BMI 37.6 DM PAST SURGICAL HISTORY: None PERSONAL/SOCIAL HISTORY: Non-smoker REVIEW OF SYSTEMS: GENERAL: Denies chills, fatigue, fever, weight gain and weight loss. HEENT: Denies blurred vision and double vision. Denies ear symptoms. Denies hoarseness. NECK: Denies any neck pain. CARDIOVASCULAR: Denies chest pain and palpitations. MUSCULOSKELETAL: Reports chronic back pain SKIN: Denies rash. NEUROLOGIC: Denies headache, stroke and transient ischemic attack. PSYCHIATRIC: Denies anxiety and depression. ENDOCRINE: Denies thyroid disease. HEMATOLOGY/ONCOLOGY: Denies any bleeding or clotting disorder. HEART: Reports history of PA. Denies chest pain, shortness of breath PULMONARY: Denies chronic cough, dyspnea and wheezing. GASTROINTESTINAL: Denies rectal bleeding, family history of colon cancer, constipation, diarrhea, dysphagia, heartburn and jaundice. GENITOURINARY: Denies dysuria, frequency, hematuria and nocturia. ENDOCRINE: Denies polydipsia, polyphagia, polyuria, heat or cold intolerance. INFECTIOUS: Denies any recent upper respiratory tract infection, UTI, need for use of antibiotics. NUTRITION: Reports good appetite. PHYSICAL EXAMINATION: VITAL SIGNS: Please see below. GENERAL APPEARANCE: Patient seen at bedside, currently resting comfortably. Awake, alert, oriented. HEENT: Normocephalic, atraumatic. [place] palpebral conjunctivae. Anicteric sclerae. Lips moist. NECK: Supple. No thyromegaly. No lymphadenopathies. LUNGS: Lung sounds are clear to auscultation bilaterally. No wheezing appreciated. HEART: Heart rate and rhythm are regular with no murmurs. ABDOMEN: Abdomen is soft. No hepatosplenomegaly. No herniations noted, non distended. TTP RLQ with some grimacing and guarding on exam. SKIN: Warm, moist. EXTREMITIES: No edema identified. LABORATORY DATA: WBC 16.9 on admission. Hemoglobin 16.2, platelets 228. Lactic acid 1.1 AST 29, ALT 85, alkaline phosphatase 70 Lipase 52 IMAGING: CT abdomen/pelvis IMPRESSION: Findings compatible with acute non-perforated appendicitis. A dilated, inflamed appendix is seen, containing at least 2 appendicoliths. No abscess. No bowel obstruction. No free air. Diffuse fatty liver infiltration. Electronically signed by: Lauren Khalil On 11/23/2020 01:59:12 AM DD: LAUREN KHALIL MD 11/23/20 0017 IMPRESSION AND PLAN: Acute appendicitis. The patient is reviewed and examined as per Dr. Horta this morning. Imaging is reviewed as per Dr. Horta. Continue NPO IVF 125 mL/h, IV Zosyn Plan for laparoscopic appendectomy today as per Dr. Horta. Plan is discussed with the patient as per Dr. Horta. The patient verbalizes understanding and agreement with no further questions or concerns at this time. POORNIMA. CPAP. DM. NPO [place]/metformin on hold. HLD. Zetia, fenofibrate on hold. Vital Signs Vital Signs Date Time Temp Pulse Resp B/P (MAP) Pulse Ox O2 Delivery O2 Flow Rate FiO2 11/23/20 05:08 98.2 89 17 140/82 (101) 97 Room Air Laboratory Data Labs 24H Laboratory Tests 2 11/23/20 00:24: Immature Granulocyte % (Auto) 0.4, Neutrophils (%) (Auto) 78.4H, Lymphocytes (%) (Auto) 10.7L, Monocytes (%) (Auto) 9.8H, Eosinophils (%) (Auto) 0.5, Basophils (%) (Auto) 0.2, Neutrophils # (Auto) 13.2H, Lymphocytes # (Auto) 1.8, Monocytes # (Auto) 1.7H, Eosinophils # (Auto) 0.1, Basophils # (Auto) 0.0, Nucleated Red Blood Cells % (auto) 0.0, Urine Color YELLOW, Urine Appearance CLEAR, Urine pH 5.0, Urine Specific [place] >1.060H, Urine Protein NEGATIVE, Urine Glucose (UA) 3+H, Urine Ketones 1+H, Urine Blood NEGATIVE, Urine Nitrite NEGATIVE, Urine Bilirubin NEGATIVE, Urine Urobilinogen 0.2, Urine Leukocyte Esterase NEGATIVE, Urine WBC (Auto) 0, Urine RBC (Auto) 1, Urine Hyaline Casts (Auto) 0, Urine Bacteria (Auto) NEGATIVE, Urine Squamous Epithelial Cells 0, Urine Mucus (Auto) SMALL, Urine Sperm (Auto) , Lactic Acid Level 1.1, Total Bilirubin 0.7, Direct Bilirubin 0.1, Aspartate Amino Transf (AST/SGOT) 29, Alanine Aminotransferase (ALT/SGPT) 85H, Alkaline Phosphatase 70, Total Protein 8.1, Albumin 4.2, Albumin/Globulin Ratio 1.1, Lipase 52L 11/23/20 00:49: POC Glucose (Misc Panel) 124H, POC Sodium (Misc Panel) 140, POC Potassium (Misc Panel) 3.9, POC Chloride (Misc Panel) 102, POC Total CO2 (Misc Panel) 21.0L, POC Blood Urea Nitrogen (Misc Panel 14, POC Ionized Calcium (Misc Panel) 4.4L, POC Creatinine (Misc Panel) 0.8, POC Hematocrit (Misc Panel) 50.0 11/23/20 02:15: Coronavirus (COVID-19)(PCR) NEGATIVE, Influenza Type A (RT-PCR) NEGATIVE, Influenza Type B (RT-PCR) NEGATIVE, Respiratory Syncytial Virus (PCR) NEGATIVE CBC/BMP Laboratory Tests 11/23/20 00:24 Home Medications Scheduled Cholecalciferol (Vitamin D3) (Vitamin D3) 1,250 Mcg Capsule, 1,250 MCG PO QWEEK, (Reported) SUNDAYS Ertugliflozin Pidolate (Steglatro) 15 Mg Tablet, 15 MG PO DAILY, (Reported) Ezetimibe (Ezetimibe) 10 Mg Tablet, 10 MG PO QHS, (Reported) Fenofibrate Nanocrystallized (Fenofibrate) 145 Mg Tablet, 145 MG PO QHS, (Reported) Metformin HCl (Metformin HCl) 1,000 Mg Tablet, 1,000 MG PO BID, (Reported) Naproxen Sodium (Aleve) 220 Mg Tablet, 440 MG PO BID, (Reported) [place]-3 Fatty Acids/Fish Oil (Fish Oil 1,000 mg Capsule) 1 Each Capsule, 1,000 MG PO DAILY, (Reported) Scheduled PRN Aspirin/Caffeine (Paula Back-Body 500-32.5 mg) 1 Each Tablet, 2 TAB PO DAILY PRN for BACK PAIN, (Reported) TAKES IN THE MIDDLE OF THE DAY NEEDED Allergies Coded Allergies: No Known Allergies (Unverified , 04/14/17) A-FIB/CHADSVASC A-FIB History Current/History of A-Fib/PAF?: No Attending Note Attending Note I evaluated the patient and spoke to the patient independently of Ms. Garcia. He reports with 1 day history of progressing abdominal pain centered over the right lower quadrant area. Mild leukocytosis. No systemic signs of severe inflammatory response. Localized tenderness on examination to the right lower quadrant. Imaging is consistent with acute appendicitis. I have gone ahead and schedule him for laparoscopic appendectomy and is awaiting availability of the room. For the meantime have started him on Zosyn 3.375 g IV every 6 hours. He has as needed orders for pain medication as well as nausea medication. He will be kept n.p.o. I discussed with the patient the details of the proposed procedure, the benefits of performing the procedure, the most common risks on doing the procedure. This may include risks for bleeding, subsequent infection or abscess formation, injury to nearby bowels or blood vessels as well as general risks for general anesthesia. I have given him a chance to ask questions, voice out concerns. Patient has agreed to proceed Lala Garcia Nov 23, 2020 08:23 THADDEUS HORTA MD Nov 23, 2020 10:27
[2020-11-23] MEDS: PIPERACILLIN/TAZOBACTAM SOD 3.375 GM in D5W MINI-BAG PLUS 50 ML IV SCH ×3 (08:26→20:30)
[2020-11-23] MEDS ORDERED: BUPIVACAINE HCL 0.25% 30ML VIAL As Ordered ONE ×2 (10:31→13:54)
[2020-11-23] MEDS ORDERED: LIDOCAINE 1% SDV 30ML VIAL As Ordered ONE ×2 (10:31→13:54)
[2020-11-23] MEDS ORDERED: fentaNYL 100 MCG/2 ML INJECTION (J3010) As Ordered ONE ×2 (13:55→15:04)
[2020-11-23] MEDS ORDERED: MIDAZOLAM INJ 2MG/2ML VIAL (J2250 PER 1MG) As Ordered ONE (13:55)
[2020-11-23] MEDS ORDERED: ROCURONIUM BROMIDE 50 MG/5 ML VIAL As Ordered ONE (13:56)
[2020-11-23] MEDS ORDERED: propofoL 200 MG/20 ML VIAL As Ordered ONE (13:56)
[2020-11-23] MEDS ORDERED: LIDOCAINE 2% 100MG/5ML SDV (FOR ANES.) As Ordered ONE (13:56)
[2020-11-23] MEDS ORDERED: ZOSYN 3.375GM VIAL (J2543) As Ordered ONE (14:25)
[2020-11-23] MEDS ORDERED: SUGAMMADEX SODIUM 500 MG/5 ML VIAL (BRIDION) As Ordered ONE (15:02)
[2020-11-23] MEDS ORDERED: KETOROLAC 60MG 2ML VIAL As Ordered ONE (15:02)
[2020-11-23] MEDS ORDERED: ACETAMINOPHEN 1000MG 100ML IV BTL (OFIRMEV) (J0131 PER 10MG) As Ordered ONE (15:05)
[2020-11-23] MEDS ORDERED: LABETALOL 100MG/20ML VIAL As Ordered ONE (15:23)
--- NOTE | 2020-11-23 16:14 | ROOPDOC ---
[facility] Report Of Operation Report of Operation DATE OF PROCEDURE: 11/23/20 PREPROCEDURE DIAGNOSES: Acute appendicitis. POSTPROCEDURE DIAGNOSES: Acute appendicitis (gangrenous appendix). PROCEDURE PERFORMED: Laparoscopic appendectomy. SURGEON: Matthieu Horta MD ANESTHESIA: General endotracheal anesthesia. ESTIMATED BLOOD LOSS: Approximately 10 mL. COMPLICATIONS: None. REMARKS: 39-year-old male with 1 day history of progressing right-sided abdominal pain, nausea presented to the emergency room late last night and was found to have evidence for acute appendicitis, leukocytosis of 16,000, localized tenderness over the right lower quadrant area. FINDINGS: Appendix is wrapped in omentum with some fibrinous exudate overlying the bowels nearby. Small amount of slightly murky fluid along the right gutter. The appendix is noted to be dilated, acutely inflamed throughout its course with somewhat gangrenous appearance but no overt perforation noted up till the junction to the cecum. Cecum does not look to be affected. Mesoappendix is mildly thickened. SPECIMENS REMOVED: Appendix. DESCRIPTION OF PROCEDURE: . Patient has been received 2 doses of Zosyn 3.375 g IV every 6 hours while awaiting availability of the operating room. Patient was brought to the operating room, placed supine on the table. Sequential compression device placed for DVT prophylaxis. General endotracheal anesthesia started. The abdomen prepped and draped in usual sterile fashion. We paused for a surgical timeout using both pre-incision safety checklist to verify correct patient, procedure site and additional clinical information prior to beginning the procedure Entry into the abdomen done through an incision at the top of the umbilicus. Ve ress needle inserted on a controlled fashion. Intra-abdominal placement confirmed with saline drop technique. CO2 insufflation started to a pressure of 15 mmHg. Using the same incision a 5 mm port was placed under direct vision of laparoscope. Insertion site was inspected for injury and none was found. He was placed on a Trendelenburg position the right side tilted to allow for better visualization of the appendix. Under direct visualization I placed my working ports which includes an 8 mm suprapubic port and a 5 mm left lower quadrant port Operative findings: On entry there is a portion of the omentum that is adhered to the right lower quadrant abdominal wall with some traces of fibrin exudates between it. I could make up a loop of bowel possibly the appendix being covered by the inflamed omentum. There are no free fluid over the surface of the liver. There is lots of bowels packed in the pelvis so fluid collection is hard to determine. On dissecting the adhered loop of bowel and omentum from the abdo irineo wall this reveals a distended, acutely inflamed appendix which appears to be throughout its course inserting into a normal cecum. A few exudates at the wall of the appendix also close to the small bowel that is adhered near it. There were no free perforations but the wall itself seems very ischemic in appearance and thin-walled. The appendix was grasped to pull the base of the appendix into view. The mesoappendix was divided using Harmonic scalpel down to the base. Two PDS Endoloops were placed to ligate the appendix at its base then divided with a Harmonic Scalpel. the stump cauterized. Appendix was then delivered into an Endo Catch bag through the 8 mm port site. This was later closed with a single suture of 0 Vicryl and the UR needle. After re-insufflation the surgical site was inspected for hemostasis, the small fluid collection at the right gutter was suctioned off. No irrigation was needed. The surgical site was inspected. No active bleeding. Stump looks adequately closed. Surrounding areas of the abdomen and inspected for fluid collections or signs of injury. The abdomen was deflated. All ports removed. The 8 mm fascial defect repaired with 0 Vicryl in a mattress fashion. All skin incisions closed with 4-0 Monocryl in a subcuticular fashion. Steri-Strips and gauze dressing used for wound coverage. Patient was promptly awake and extubated and brought to recovery room stable. All counts of sponges and instruments verified to be correct. MATTHIEU HORTA MD Nov 23, 2020 16:14
[2020-11-23] MEDS ORDERED: PERCOCET 5MG/325MG TAB PO PRN (16:15)
[2020-11-23] MEDS ORDERED: LR 1,000 ML IV SCH (16:30)
[2020-11-23] MEDS ORDERED: oxyCODONE 5MG TAB PO PRN (16:30)
[2020-11-23] MEDS ORDERED: fentaNYL 100 MCG/2 ML INJECTION (J3010) IV PRN (16:30)
[2020-11-23] MEDS ORDERED: HYDROMORPHONE HCL 0.5 MG/ 0.5 ML SYRINGE (J1170 PER 1) IV PRN (16:30)
[2020-11-23] MEDS ORDERED: FENOFIBRATE 145 MG TAB (TRICOR) PO SCH (21:00)
[2020-11-23] MEDS ORDERED: EZETIMIBE 10 MG TAB (ZETIA) PO SCH (21:00)
[2020-11-24 02:00] VITALS: BP 126/66
[2020-11-24] MEDS: PIPERACILLIN/TAZOBACTAM SOD 3.375 GM in D5W MINI-BAG PLUS 50 ML IV SCH ×2 (02:34→08:45)
[2020-11-24 06:00] VITALS: BP 119/63
[2020-11-24 06:55] LABS: BASO % 0.3 % (0.0-1.0); EOS % 0.1 % (0.0-3.0); HEMATOCRIT 42.3 % (42.0-52.0); LYMPH # 1.4 10^3/uL (1.5-5.0); LYMPH % 11.4 % (24.0-44.0); MEAN CORPUSCULAR HEMOGLOBIN 28.5 pg (27.0-33.0); MEAN CORPUSCULAR HGB CONC 33.1 g/dl (32.0-36.5); MEAN CORPUSCULAR VOLUME 86.2 fl (80.0-96.0); MONO # 0.9 10^3/uL (0.0-0.8); MONO % 7.6 % (2.0-8.0); NEUTROPHILS # 9.5 10^3/uL (1.5-8.5); PLATELET COUNT, AUTOMATED 187 10^3/uL (150-450); RED BLOOD COUNT 4.91 10^6/uL (4.30-6.10); WHITE BLOOD COUNT 11.9 10^3/uL (4.0-10.0)
[2020-11-24 07:43] LABS: BLOOD UREA NITROGEN 16 MG/DL (7-18); CARBON DIOXIDE LEVEL 25 MEQ/L (21-32); CHLORIDE LEVEL 107 MEQ/L (98-107); CREATININE FOR GFR 0.72 MG/DL (0.70-1.30); GLOMERULAR FILTRATION RATE > 60.0 (>60); GLUCOSE, FASTING 105 MG/DL (70-100); POTASSIUM SERUM 4.1 MEQ/L (3.5-5.1); SODIUM LEVEL 139 MEQ/L (136-145)
--- NOTE | 2020-11-24 08:55 | DS.PDOC ---
Discharge Summary General Date of Admission 11/23/2020 Date of Discharge 11/24/2020 Attending Physician: THADDEUS HORTA MD Discharge Summary PROCEDURES PERFORMED DURING STAY: Laparoscopic appendectomy as per Dr. Horta 11/23/2020 ADMITTING DIAGNOSES: Acute appendicitis Asthma POORNIMA, CPAP Chronic back pain History of [place] Hypertension Hyperlipidemia BMI 37.6 DM DISCHARGE DIAGNOSES: Acute appendicitis status post laparoscopic appendectomy as per Dr. Horta 11/23/2020 Asthma POORNIMA, CPAP Chronic back pain History of [place] Hypertension Hyperlipidemia BMI 37.6 DM CHIEF COMPLAINT: Appendicitis. HISTORY OF PRESENT ILLNESS: The patient is a 39-year-old male who reports onset of nausea and vomiting this morning prior to admission. He noted some back pain but later about 5:00 he started noticing right lower quadrant pain. The pain was a dull constant pain. Worse with movement or with touching the area. It continually worsened therefore he reported to the emergency department. He denies any fevers or chills. Denies any diarrhea or constipation. Imaging in the emergency department indicated acute appendicitis, admission was arranged. HOSPITAL COURSE: The patient was taken to the operating room 11/23/[address] Horta for laparoscopic appendectomy. The patient was continued on IV Zosyn. The patient tolerated the procedure well. Postoperatively, the patient has rec eived some Toradol but otherwise has not used any Percocet. Has been up out of bed. The patient has been advanced and is tolerating regular diet. By the morning of 11/24/2020 the patient is felt stable for discharge. DISCHARGE MEDICATIONS: Please see below. ALLERGIES: Please see below. PHYSICAL EXAMINATION ON DISCHARGE: VITAL SIGNS: Temperature 98.0, has been afebrile throughout admission. Heart rate 69, respiratory rate 18, blood pressure 118/63, 97% room air GENERAL: Sitting up in bed eating breakfast HEENT: MMM CARDIOVASCULAR EXAMINATION: S1-S2 regular rate rhythm RESPIRATORY EXAMINATION: Clear to auscultation ABDOMINAL EXAMINATION: Surgical sites are clean/dry/intact. Abdomen is soft, only mild tenderness around surgical sites, no tenderness right lower quadrant EXTREMITIES no edema SKIN: No rashes or lesions LABORATORY DATA: WBC 11.9 this morning, this is decreased from 16.9 on admission. IMAGING: CT abdomen/pelvis 11/23/2020 IMPRESSION: Findings compatible with acute non-perforated appendicitis. A dilated, inflamed appendix is seen, containing at least 2 appendicoliths. No abscess. No bowel obstruction. No free air. Diffuse fatty liver infiltration. Electronically signed by: Lauren Khalil On 11/23/2020 01:59:12 AM DISCHARGE PLAN: Discharge home DISCHARGE INSTRUCTIONS: Regular diet Activity as tolerated, no lifting greater than 20 pounds Keep surgical incisions clean and dry, dry dressing. Okay to shower however no baths or swimming. Tylenol or ibuprofen as needed for postsurgical discomfort. No additional antibiotics necessary. Call back to the office with any questions or concerns, any increasing pain, wound drainage, fevers, chills. Addendum: On review of his postop labs, his CRP remains markedly elevated at 24 so I sent some prescription for amoxicillin/clavulanic acid for 7 days to his pharmacy. DISCHARGE CONDITION: Stable. TIME SPENT ON DISCHARGE: Greater than 30 minutes. Vital Signs/I&Os Vital Signs Date Time Temp Pulse Resp B/P (MAP) Pulse Ox O2 Delivery O2 Flow Rate FiO2 11/24/20 06:00 98.0 69 18 119/63 (81) 97 Room Air 11/23/20 18:00 2.0 I&O- Last 24 Hours up to 6 AM 11/24/20 06:00 Intake Total 2515 ml Output Total 1035 ml Balance 1480 ml Laboratory Data Labs 24H Laboratory Tests 2 11/23/20 14:37: Bedside Glucose (Misc Panel) 75 11/24/20 06:01: Immature Granulocyte % (Auto) 0.6, Neutrophils (%) (Auto) 80.0H, Lymphocytes (%) (Auto) 11.4L, Monocytes (%) (Auto) 7.6, Eosinophils (%) (Auto) 0.1, Basophils (%) (Auto) 0.3, Neutrophils # (Auto) 9.5H, Lymphocytes # (Auto) 1.4L, Monocytes # (Auto) 0.9H, Eosinophils # (Auto) 0.0, Basophils # (Auto) 0.0, Nucleated Red Blood Cells % (auto) 0.0, Anion Gap 7L, Glomerular Filtration Rate > 60.0, Calcium Level 8.0L, C-Reactive Protein, Quantitative 24.10H CBC/BMP Laboratory Tests 11/24/20 06:01 FSBS Laboratory Tests Test 11/23/20 14:37 Range/Units Bedside Glucose (Misc Panel) 75 70-105 MG/DL Discharge Medications Scheduled Amoxicillin/Potassium Clav (Augmentin 875-125 Tablet) 1 Each Tablet, 1 TAB PO BID Cholecalciferol (Vitamin D3) (Vitamin D3) 1,250 Mcg Capsule, 1,250 MCG PO QWEEK, (Reported) SUNDAYS Ertugliflozin Pidolate (Steglatro) 15 Mg Tablet, 15 MG PO DAILY, (Reported) Ezetimibe (Ezetimibe) 10 Mg Tablet, 10 MG PO QHS, (Reported) Fenofibrate Nanocrystallized (Fenofibrate) 145 Mg Tablet, 145 MG PO QHS, (Reported) Metformin HCl (Metformin HCl) 1,000 Mg Tablet, 1,000 MG PO BID, (Reported) Naproxen Sodium (Aleve) 220 Mg Tablet, 440 MG PO BID, (Reported) [place]-3 Fatty Acids/Fish Oil (Fish Oil 1,000 mg Capsule) 1 Each Capsule, 1,000 MG PO DAILY, (Reported) Allergies Coded Allergies: No Known Allergies (Unverified , 04/14/17) Lala Garcia Nov 24, 2020 08:55 THADDEUS HORTA MD Nov 24, 2020 12:52
[2020-11-24 10:00] VITALS: BP 127/78
[2020-11-24] MEDS ORDERED: AUGM875T28 PO (10:34)
[2020-11-24] MEDS: KETOROLAC 30 MG/ML 1ML VIAL IV PRN (11:40)
== END 2020-11-24 14:32 | disposition home or self-care (01) ==
LOC: M ED 23:01 → M SDC 11-23 03:17 → M MSPAV 11-23 05:07 → M SDC 11-24 14:32
PROVIDERS: ATTEND Surgery
DX: K35.33 Acute appendicitis with perforation, localized peritonitis, and gangrene, with abscess (principal); D72.829 Elevated white blood cell count, unspecified; J45.909 Unspecified asthma, uncomplicated; G47.33 Obstructive sleep apnea (adult) (pediatric); M54.9 Dorsalgia, unspecified; I10 Essential (primary) hypertension; E78.5 Hyperlipidemia, unspecified; E11.9 Type 2 diabetes mellitus without complications; I25.2 Old myocardial infarction; Z79.899 Other long term (current) drug therapy; Z79.2 Long term (current) use of antibiotics; Z79.84 Long term (current) use of oral hypoglycemic drugs; Z79.1 Long term (current) use of non-steroidal anti-inflammatories (NSAID); F17.290 Nicotine dependence, other tobacco product, uncomplicated
CPT/HCPCS: 36415; 44970; 74177; 80047; 80048; 80076; 81001; 83605; 83690; 85025; 86140; 87631; 88304; 96361; 96365; 96366; 96367; 96375; 96376; 99284; J0131; J1885; J2250; J2405; J2543; J3010

== ENCOUNTER → 2021-04-12 | Outpatient (CLI) | payer OTHER ==
[~2021-04-12] MED LIST changes: +ALEV220T22 PO; +AUGM875T28 PO; +BAYE500T2 PO; +EZET10TA21 PO; +FENO145T7 PO; +FISH1000 PO; +METF10004 PO; +NAPR220C14 PO; +STEG15TA PO; +VITA1CAP25 PO
== END ==
LOC: M SLEEP HO 13:05
PROVIDERS: ATTEND Nurse Practitioner Adult Health
DX: G47.30 Sleep apnea, unspecified (principal)

== ENCOUNTER 2023-05-13 12:17 | Emergency (ER) | payer OTHER ==
[~2023-05-13] VITALS: Ht 167.6 cm; Wt 109.4 kg
[~2023-05-13 12:17] MED LIST changes: +INSU100I6 SC; -LEVE1INJ5 SC
[2023-05-13] MEDS ORDERED: LISI10TA22 (12:25)
[2023-05-13] MEDS ORDERED: VITA100093 (12:25)
[2023-05-13] MEDS ORDERED: DULA3PEN (12:25)
[2023-05-13 14:01] LABS: BASO % 0.3 % (0.0-1.0); EOS % 0.3 % (0.0-3.0); HEMATOCRIT 44.4 % (42.0-52.0); LYMPH # 1.5 10^3/uL (1.5-5.0); LYMPH % 10.3 % (24.0-44.0); MEAN CORPUSCULAR HEMOGLOBIN 29.9 pg (27.0-33.0); MEAN CORPUSCULAR HGB CONC 33.8 g/dl (32.0-36.5); MEAN CORPUSCULAR VOLUME 88.6 fl (80.0-96.0); MONO # 0.7 10^3/uL (0.0-0.8); NEUTROPHILS # 12.3 10^3/uL (1.5-8.5); NEUTROPHILS % 83.5 % (36.0-66.0); PLATELET COUNT, AUTOMATED 210 10^3/uL (150-450); RED BLOOD COUNT 5.01 10^6/uL (4.30-6.10); WHITE BLOOD COUNT 14.7 10^3/uL (4.0-10.0)
[2023-05-13 14:30] LABS: BLOOD UREA NITROGEN 17 MG/DL (9-23); CALCIUM LEVEL 8.6 MG/DL (8.5-10.1); CARBON DIOXIDE LEVEL 28 MMOL/L (20-31); CHLORIDE LEVEL 99 MMOL/L (98-107); CREATININE FOR GFR 0.62 MG/DL (0.70-1.30); GLOMERULAR FILTRATION RATE > 60.0 (>60); GLUCOSE, FASTING 216 MG/DL (60-100); POTASSIUM SERUM 4.5 MMOL/L (3.5-5.1); SODIUM LEVEL 133 MMOL/L (136-145)
[2023-05-13] MEDS ORDERED: ISOVUE-370 76% 100ML VIAL As Ordered ONE (14:50)
[2023-05-13] MEDS ORDERED: MECL-86 PO (17:28)
[2023-05-13 18:22] VITALS: BP 162/84; TEMP 98.5; O2SAT 98
== END 2023-05-13 18:25 | disposition home or self-care (01) ==
LOC: M ED 12:17
DX: H81.4 Vertigo of central origin (principal); E11.9 Type 2 diabetes mellitus without complications; I10 Essential (primary) hypertension; E78.5 Hyperlipidemia, unspecified; G47.33 Obstructive sleep apnea (adult) (pediatric); J45.909 Unspecified asthma, uncomplicated; F10.10 Alcohol abuse, uncomplicated; Z79.4 Long term (current) use of insulin; Z79.899 Other long term (current) drug therapy
CPT/HCPCS: 36415; 70450; 70496; 70498; 70551; 80048; 85025; 93005; 93041; 99285; Q9967

== ENCOUNTER 2024-07-20 10:51 | Emergency (ER) | payer OTHER ==
[~2024-07-20] VITALS: Ht 167.6 cm; Wt 108.4 kg
[~2024-07-20 10:51] MED LIST changes: +DULA3PEN; +LISI10TA22; +MECL-86 PO; +VITA100093
[2024-07-20 10:59] VITALS: TEMP 97.3
[2024-07-20] MEDS: diazePAM 5MG TABLET PO ONE (14:23)
[2024-07-20] MEDS ORDERED: METH-1164 PO (15:42)
[2024-07-20 15:48] VITALS: BP 136/85; O2SAT 98
== END 2024-07-20 15:51 | disposition home or self-care (01) ==
LOC: M ED 10:51
DX: M62.830 Muscle spasm of back (principal); I25.2 Old myocardial infarction; I25.119 Atherosclerotic heart disease of native coronary artery with unspecified angina pectoris; E11.9 Type 2 diabetes mellitus without complications; I10 Essential (primary) hypertension; Z87.891 Personal history of nicotine dependence; Z79.4 Long term (current) use of insulin; Z79.84 Long term (current) use of oral hypoglycemic drugs; Z79.899 Other long term (current) drug therapy